=== PATIENT | female | born 1960 | race Caucasian/White ===

== ENCOUNTER → 2017-03-29 | Outpatient (CLI) | payer BC ==
--- NOTE | 2017-03-29 09:36 | RAD ---
EXAM: DIGITAL SCREEN BILAT W/CAD HISTORY: Routine Screening. COMPARISON: 09/12/2012 Standard mammographic views are obtained of the bilateral breasts. Additionally three-dimensional tomographic images obtained. This study was interpreted with the benefit of Computerized Aided Detection (CAD). FINDINGS: The breast parenchyma shows scattered fibroglandular densities. Breast parenchyma level B.. There is no definite new suspicious spiculated mass or worrisome new cluster of microcalcifications. IMPRESSION: No definite new suspicious mass. BI-RADS CATEGORY: 1 NEGATIVE RECOMMENDED FOLLOW-UP: 12M 12 MONTH FOLLOW-UP PQRS compliance statement: Patient information was entered into a reminder system with a target due date for the next mammogram. Mammography is a sensitive method for finding small breast cancers, but it does not detect them all and is not a substitute for careful clinical examination. A negative mammogram does not negate a clinically suspicious finding and should not result in delay in biopsying a clinically suspicious abnormality. "Our facility is accredited by the [employer] Mammography [employer]."
== END | disposition home or self-care (01) ==
LOC: MAMMO 07:50
PROVIDERS: ATTEND Specialist
DX: Z12.31 Encounter for screening mammogram for malignant neoplasm of breast (principal)
CPT/HCPCS: G0202; 77067

== ENCOUNTER → 2018-04-18 | Outpatient (CLI) | payer BC ==
--- NOTE | 2018-04-18 10:44 | RAD ---
DATE: 04/18/2018 EXAM: MAMMO CESARIO SCREENING BILATERAL HISTORY: Routine screening COMPARISON: 03/29/2017 This study was interpreted with the benefit of Computerized Aided Detection (CAD). The breast parenchyma shows scattered fibroglandular densities. Breast parenchyma level B. FINDINGS: 2-D and 3-D tomosynthesis imaging was performed in CC and MLO projections. The fibroglandular tissues are heterogeneous and somewhat nodular in character. There is a 4.8 mm lobulated nodule in the inferolateral aspect of the right breast as best seen on right CC cesario image #9. This was not evident on the previous study. No spiculated mass or architectural distortion is seen. No suspicious microcalcifications are evident. IMPRESSION: Small right breast nodule which appears new. A targeted ultrasound exam is suggested for further evaluation. BI-RADS CATEGORY: 0 INCOMPLETE: NEEDS ADDITIONAL IMAGING EVALUATION AND/OR PRIOR MAMMOGRAMS FOR COMPARISON. RECOMMENDED FOLLOW-UP: ADD ADDITIONAL IMAGING PQRS compliance statement: Patient information was entered into a reminder system with a target due date for the next mammogram. Mammography is a sensitive method for finding small breast cancers, but it does not detect them all and is not a substitute for careful clinical examination. A negative mammogram does not negate a clinically suspicious finding and should not result in delay in biopsying a clinically suspicious abnormality. "Our facility is accredited by the [employer] Mamm[employer]."
== END | disposition home or self-care (01) ==
LOC: MAMMO 09:16
PROVIDERS: ATTEND Specialist
DX: Z12.31 Encounter for screening mammogram for malignant neoplasm of breast (principal)
CPT/HCPCS: 77063; 77067

== ENCOUNTER → 2018-04-25 | Outpatient (CLI) | payer BC | END | disposition home or self-care (01) | LOC: US 10:34 | PROVIDERS: ATTEND Specialist | DX: R92.8 Other abnormal and inconclusive findings on diagnostic imaging of breast (principal) | CPT/HCPCS: 76641 ==

== ENCOUNTER → 2019-03-09 | Outpatient (CLI) | payer BC ==
--- NOTE | 2019-03-31 14:30 | RAD ---
Examination: BREAST RIGHT History: Abnormal mammogram follow-up Comparison/Correlation: 04/25/2018 right breast ultrasound exam Findings: Limited right breast ultrasound exam again demonstrates a 0.3 cm x 0.2 cm x 0.2 cm tall well circumscribed hypoechoic structure. No flow within it. It is more smoothly marginated and the finding on the prior exam. Impression: BI-RADS Category 3-probably benign. Six-month follow-up ultrasound exam is recommended to assess stability. Electronically signed by: Yehuda Lopez MD (03/31/2019 2:27 PM) [id number]
== END | disposition home or self-care (01) ==
LOC: US 12:29
PROVIDERS: ATTEND Specialist
DX: R92.8 Other abnormal and inconclusive findings on diagnostic imaging of breast (principal)
CPT/HCPCS: 76641

== ENCOUNTER → 2019-08-25 | Outpatient (CLI) | payer BC ==
--- NOTE | 2019-08-25 16:42 | RAD ---
DATE: 08/25/2019. EXAM: MAMMO CESARIO DIAG BILAT, ULTRASOUND BREAST RIGHT. HISTORY: Six-month follow-up right breast nodule. COMPARISON: 03/09/2019, 04/18/2018, 03/29/2017, 04/25/2018. This study was interpreted with the benefit of Computerized Aided Detection (CAD). FINDINGS: Breast Density: FATTY The breast parenchyma is primarily fatty replaced. Breast parenchyma level density A. There are no suspicious masses, microcalcifications or architectural distortion. Foraminal pattern is stable. Today's sonography again demonstrates a 3 x 2 mm hypoechoic and anechoic nodule at the 7:00 position 5 cm from the nipple. This is likely a benign complex cyst. BI-RADS CATEGORY: 2 BENIGN FINDING(S). RECOMMENDED FOLLOW-UP: 12M 12 MONTH FOLLOW-UP. PQRS compliance statement: Patient information was entered into a reminder system with a target due date 08/25/2020 for the next mammogram. Mammography is a sensitive method for finding small breast cancers, but it does not detect them all and is not a substitute for careful clinical examination. A negative mammogram does not negate a clinically suspicious finding and should not result in delay in biopsying a clinically suspicious abnormality. "Our facility is accredited by the [employer] Mammography [employer]."
== END | disposition home or self-care (01) ==
LOC: MAMMO 13:38
PROVIDERS: ATTEND Specialist
DX: R92.8 Other abnormal and inconclusive findings on diagnostic imaging of breast (principal); N63.13 Unspecified lump in the right breast, lower outer quadrant
CPT/HCPCS: 76641; 77066; G0279; 77062

== ENCOUNTER → 2020-09-14 | Outpatient (CLI) | payer BC ==
--- NOTE | 2020-09-14 11:07 | RAD ---
EXAM: Bilateral digital screening mammogram with tomosynthesis. HISTORY: 60-year-old female presents for screening mammography. TECHNIQUE: Full-field digital craniocaudal and mediolateral oblique 2D and 3D tomosynthesis images of both breasts are obtained for evaluation. Computer aided detection was applied. COMPARISON: 08/25/2019 BREAST PARENCHYMAL DENSITY: Level B - Scattered fibroglandular densities. FINDINGS: There has been interval increase in circumscribed nodules within the 3:00 position of the l eft breast approximately 1.5 cm from the nipple and at the 2:00 position 5.5 cm from the nipple. Ther e are additional areas of nodularity within both breasts which are stable in appearance. There is no architectural distortion or suspicious calcification. IMPRESSION: BI-RADS Category 0: Incomplete. Additional imaging needed. RECOMMENDATION: Sonographic imaging of the left breast is recommended to assess increasing nodularity at the 3:00 and 2:00 positions, described above. If your mammogram demonstrates that you have dense breast tissue, which could hide abnormalities, and if you have other risk factors for breast cancer that have been identified, you might benefit from s upplemental screening tests that may be suggested by your ordering physician. Dense breast tissue, i n and of itself, is a relatively common condition. This information is not provided to cause undue c oncern, but rather to raise your awareness and to promote discussion with your physician regarding th e presence of other risk factors, in addition to dense breast tissue. A report of your mammography re sults will be sent to you and your physician. You should contact your physician if you have any ques tions or concerns regarding this report. Mammography is a sensitive method for finding small breast cancers, but it does not detect them all a nd is not a substitute for careful clinical examination. A negative mammogram does not negate a clin ically suspicious finding and should not result in delay in biopsying a clinically suspicious abnorma lity. PQRS compliance statement - Patient information was entered into a reminder system with a target due date for the next mammogram. "Our facility is accredited by the [employer] Mammography [employer]." Electronically signed by: Fadia Alejandro MD (09/14/2020 11:05 AM) [id number]
== END ==
LOC: MAMMO 09:56
PROVIDERS: ATTEND Specialist
DX: Z12.31 Encounter for screening mammogram for malignant neoplasm of breast (principal); N64.89 Other specified disorders of breast
CPT/HCPCS: 77063; 77067

== ENCOUNTER → 2020-09-19 | Outpatient (CLI) | payer BC ==
--- NOTE | 2020-09-20 14:02 | RAD ---
Examination: Limited left breast ultrasound. INDICATION: Screening recall for left breast nodularity. COMPARISON: Bilateral mammogram of 09/14/2020. TECHNIQUE: Targeted ultrasound of the left breast was performed over the upper-outer quadrant in furt her evaluation of developing nodularity recalled from screening. FINDINGS: At the left 2:00 position 3 cm from the nipple, mild duct ectasia and a sonographically benign 4.5 mm cyst was identified. No suspicious sonographic findings. Survey of the left axilla by ultrasound rev ealed no adenopathy. IMPRESSION: Benign findings on targeted left breast ultrasound. No evidence of malignancy BI-RADS Category 2 Benign findings Recommend return to routine screening next due in one year Patient entered into a reminder system with targeted due date for next mammogram Electronically signed by: Diane Arriaza MD (09/20/2020 2:00 PM) [id number]
== END ==
LOC: US 12:30
PROVIDERS: ATTEND Specialist
DX: N60.42 Mammary duct ectasia of left breast (principal)
CPT/HCPCS: 76641

== ENCOUNTER → 2021-10-04 | Outpatient (CLI) | payer BC ==
--- NOTE | 2021-10-04 13:54 | RAD ---
BILATERAL DIGITAL SCREENING 2-D AND 3-D MAMMOGRAM INDICATION: Routine screening. COMPARISON: Prior exams including 1 09/14/2020. Interpretation was made using CAD. FINDINGS: Breast Density: B RIGHT BREAST: There is suggestion of a new asymmetry in the outer breast and near the 8 to 9:00 posit ion roughly 9 to 10 cm from the nipple and measuring about 8 mm. LEFT BREAST: No suspicious masses, calcifications or areas of architectural distortion are seen. IMPRESSION: 1. Possible developing abnormality in the outer right breast. Spot compression views and straight ML view are recommended along with ultrasound. ASSESSMENT: BI-RADS 0. Further imaging is needed. RECOMMENDATION: Additional right breast mammogram views and ultrasound. The facility will notify the patient of the results via mail. Patient information will be entered int o the mammography reminder system with a target recall date for the next mammogram. A reminder letter will be generated by the facility. Electronically signed by: Jose Garcia Jr., MD (10/04/2021 1:52 PM) [id number]
== END ==
LOC: MAMMO 11:13
PROVIDERS: ATTEND Specialist
DX: Z12.31 Encounter for screening mammogram for malignant neoplasm of breast (principal)
CPT/HCPCS: 77063; 77067

== ENCOUNTER → 2021-10-17 | Outpatient (CLI) | payer BC ==
--- NOTE | 2021-10-17 15:41 | RAD ---
EXAM: Right breast diagnostic mammogram with tomosynthesis. HISTORY: 61-year-old female presents for evaluation of asymmetry within the right breast demonstrated on a mammogram dated 10/04/2021. TECHNIQUE: Full-field digital 2D and 3D tomosynthesis images and spot compression images of the right breast are obtained. Sonographic imaging of the right breast targeted to the site of mammographic as ymmetry was also performed. COMPARISON: 10/04/2021 and 09/14/2020 BREAST PARENCHYMAL DENSITY: Level B - Scattered fibroglandular densities. FINDINGS: There is no convincing persistent suspicious finding within the right breast with additiona l mammographic views. The asymmetry of concern within the 9:00 position appears to change configurati on between projections, favoring benignity. There is no suspicious calcification or architectural dis tortion. Sonographic imaging of the right breast demonstrates no suspicious finding in the region of prior asy mmetry. IMPRESSION: 1. No persistent suspicious mammographic or sonographic finding. 2. BI-RADS Category 2: Benign finding(s). RECOMMENDATION: Annual mammography is recommended. If your mammogram demonstrates that you have dense breast tissue, which could hide abnormalities, and if you have other risk factors for breast cancer that have been identified, you might benefit from s upplemental screening tests that may be suggested by your ordering physician. Dense breast tissue, i n and of itself, is a relatively common condition. This information is not provided to cause undue c oncern, but rather to raise your awareness and to promote discussion with your physician regarding th e presence of other risk factors, in addition to dense breast tissue. A report of your mammography re sults will be sent to you and your physician. You should contact your physician if you have any ques tions or concerns regarding this report. Mammography is a sensitive method for finding small breast cancers, but it does not detect them all a nd is not a substitute for careful clinical examination. A negative mammogram does not negate a clin ically suspicious finding and should not result in delay in biopsying a clinically suspicious abnorma lity. PQRS compliance statement - Patient information was entered into a reminder system with a target due date for the next mammogram. "Our facility is accredited by the [employer] Mammography [employer]." Electronically signed by: Fadia Alejandro MD (10/17/2021 3:38 PM) [id number]
== END ==
LOC: MAMMO 13:02
PROVIDERS: ATTEND Specialist
DX: R92.2 Inconclusive mammogram (principal)
CPT/HCPCS: 76642; 77065